=== PATIENT | male | born 1965 | race Caucasian/White ===

== ENCOUNTER 2016-03-17 18:32 | Emergency (ER) | payer SELFPAY ==
[2016-03-17 18:37] VITALS: TEMP 97.7
--- NOTE | 2016-03-17 19:23 | EDPHY ---
General - History Smoking Status: Current every day smoker Narrative: CHIEF COMPLAINT: Dental pain HISTORY OF PRESENT ILLNESS: Seven days history of multiple areas of dental pain. Has extensively poor dental care and dental hygiene, and has not seen a dentist in greater than 6 months. No fever or chills. No headache. No confusion. He does have moderate to severe pain primarily teeth 8 through 16. he feels he may have an abscess. He does not have any bleeding. No trauma. No trismus. No other associated complaints or modifying factors. He is a smoker with high blood pressure. No established dental care or primary care at this time as he recently moved from [place]. REVIEW OF SYSTEMS: Ten systems reviewed and are negative unless otherwise noted in the HPI EXAMINATION General Appearance: Alert, no distress, overweight Head: normocephalic, atraumatic Eyes: Pupils equal and round, no conjunctival pallor or injection ENT, Mouth: Mucous membranes moist, very poor dentition with multiple dental caries and partially eroded teeth. No obvious abscess. There is pulpitis. No dental abscess. Uvula is midline. No other abnormality of the oropharynx Neck: Normal inspection, supple, non-tender Respiratory: Lungs are clear to auscultation Cardiovascular: Regular rate and rhythm Neurological: A&O, nonfocal Skin: Warm and dry, no rash Extremities: Nontender, no pedal edema Psychiatric: Mood and affect normal MDM: multiple dental caries with dental pain extensively on the left upper maxillary ridge. There are no obvious abscesses but there is pulpitis in very poor condition with multiple teeth that are partially eroded or fracture. He is in no acute distress with stable vital signs. Discharge home with antibiotic and pain medication for short course. Recommend follow up with dentist or dental aid for definitive care. Patient is comfortable with this plan and discharged home in stable condition. SUPERVISION:This patient was independently evaluated without the aide of supervising physician. (Tanner Burgess) Medical Decision Making: This patient was evaluated and treated by the physician human resource assistant. I have reviewed the documentation and agree with the plan of care. I am the secondary supervising physician. (Rosa Choudhary) - Objective Vital Signs: Initial Vital Signs Temperature (C) 36.5 C 03/17/16 18:35 Heart Rate 77 03/17/16 18:35 Respiratory Rate 20 03/17/16 18:35 Blood Pressure 182/115 H 03/17/16 18:35 O2 Sat (%) 96 03/17/16 18:35 O2 Delivery Mode Room Air Allergies/Adverse Reactions: codeine Allergy (Verified 03/17/16 18:34) Home Medications: Medication Instructions Recorded Penicillin V Potassium [Pen Vk 500 mg PO Q6H 10 Days 03/17/16 500mg (*)] oxyCODONE HCL/ACETAMINOPHEN 1 each PO Q4-6PRN PRN #20 tablet 03/17/16 [Percocet 5-325 mg Tablet] Medications Given: Discontinued Medications Oxycodone/Acetaminophen (Percocet 5/325) 1 tab PO EDNOW ONE Stop: 03/17/16 19:26 Last Admin: 03/17/16 19:38 Dose: 1 tab Departure - Departure Disposition: Home, Routine, Self-Care Clinical Impression: Pain due to dental caries, Poor dentition Condition: Good Instructions: Dental Caries (ED), Toothache (ED) Additional Instructions: follow-up with dentist or dental aid as discussed. Take antibiotics to completion. Pain medication only as needed. Referrals: [facility] [Outside] - As per Instructions Naye Sidhu MD [Medical Doctor] - As per Instructions Prescriptions: Penicillin V Potassium [Pen Vk 500mg (*)] 500 mg PO Q6H 10 Days oxyCODONE HCL/ACETAMINOPHEN [Percocet 5-325 mg Tablet] 1 each PO Q4-6PRN PRN # 20 tablet PRN Reason: Pain, Moderate
[2016-03-17] MEDS ORDERED: OXYCODONE/APAP 5/325 TAB PO ONE (19:25)
[2016-03-17 19:53] VITALS: BP 125/103; PULSE 89; RESP 16; O2SAT 95
== END 2016-03-17 19:40 | disposition home or self-care (01) ==
DX: K08.89 Other specified disorders of teeth and supporting structures (principal); K02.9 Dental caries, unspecified; K00.7 Teething syndrome; F17.200 Nicotine dependence, unspecified, uncomplicated

== ENCOUNTER 2016-04-19 19:07 | Emergency (ER) | payer SELFPAY ==
[2016-04-19 19:26] VITALS: TEMP 99
[2016-04-19] MEDS ORDERED: OSELTAMIVIR PHOSPHATE 75 MG CAP PO ONE (19:59)
[2016-04-19] MEDS ORDERED: IBUPROFEN 200 MG TAB PO ONE (20:00)
[2016-04-19] MEDS ORDERED: HYDROCODONE/APAP 5/325 TAB PO ONE (20:00)
[2016-04-19] MEDS ORDERED: HYDROCOD/APAP 5/325 PREPACK#6 BTL TAKEHOME ONE (20:00)
--- NOTE | 2016-04-19 20:06 | EDPHY ---
H & P Time Seen by Provider: 04/19/16 19:24 HPI/ROS: HPI Cough, muscle aches, joint aches, fever, sore throat. 51-year-old male on foot. He complains of cough, muscle aches, joint aches, fever/chills, sore throat, intermittent gradual onset headache times 1 and half days. He is currently living on [address] He does have a son who lives in [facility] who he states he can stay with tonight. His son brought him to the emergency department. ROS: Constitutional: As above. Eyes: No discharge. No changes in vision. ENT: As above. No nasal congestion or rhinorrhea. Respiratory: As above. No shortness of breath. Cardiac: No chest pain, no palpitations. Gastrointestinal: No abdominal pain, no vomiting, no diarrhea. Genitourinary: No hematuria. No dysuria or increased frequency with urination. Musculoskeletal: As above Skin: No rashes. Neurological: As above. No focal weakness or altered sensation. Past medical history: He denies any significant past medical history. Social history:He is from [place]. He is currently homeless. Physical Exam: General Appearance: Alert, no distress. This patient is responding to questions appropriately and in full sentences. This patient appears well- hydrated and well-nourished. Eyes: Pupils equal and round no pallor or injection. No lid edema, erythema or injection. ENT, Mouth: Mucous membranes are moist. Pharyngeal tissues are diffusely erythematous with mild edema. No asymmetry suggestive of abscess. No exudates. Respiratory: There are no retractions, lungs are clear to auscultation with good air movement bilaterally. No tachypnea. Intermittent nonproductive cough. Cardiovascular: Regular rate and rhythm. Borderline tachycardia No murmur. Gastrointestinal: Abdomen is soft and nontender, no masses, bowel sounds normal. No focal tenderness at McBurney's point. No Tovar sign. Neurological: Motor sensory function is grossly intact. Cranial nerves are normal. Gait is normal. Skin: Warm and dry, no rashes. Musculoskeletal: Neck is supple and nontender. No pain on flexion of the neck. No significant cervical lymphadenopathy. He is a large man. Extremities are symmetrical. All joints range without pain or impingement. Psychiatric: No agitation. No depression. Database: EKG: Imaging: Procedures: Emergency department course: Rapid influenza was ordered from triage. This was negative. However, the patient presents as classic influenza with symptoms onset a day and half ago. He will be given 2 Eldorado tablets in the emergency department with 800 mg of ibuprofen and 75 mg of Tamiflu. We will fill the prescription for Tamiflu through our assistance program of possible. He will be able to stay with his son who lives in [facility] until he gets better. I discussed follow-up with [facility] for re-evaluation. He can go to the walk-in clinic. Return to emergency department precautions reviewed. All of his questions were answered. He was discharged in good condition. Differential Diagnosis: The differential diagnosis on this patient includes but is not limited to influenza, viral syndrome, upper respiratory infection. Serious bacterial infection unlikely. This represents a partial list of diagnoses considered. These considerations are based on history, physical exam, past history, reassessment and diagnostic testing. Smoking Status: Current every day smoker Constitutional: Initial Vital Signs Temperature (C) 37.2 C 04/19/16 19:21 Heart Rate 102 H 04/19/16 19:21 Respiratory Rate 20 04/19/16 19:21 Blood Pressure 114/84 H 04/19/16 19:21 O2 Sat (%) 93 04/19/16 19:21 O2 Delivery Mode Room Air Allergies/Adverse Reactions: codeine Allergy (Verified 03/17/16 18:34) Home Medications: Medication Instructions Recorded Penicillin V Potassium [Pen Vk 500 mg PO Q6H 10 Days 03/17/16 500mg (*)] oxyCODONE HCL/ACETAMINOPHEN 1 each PO Q4-6PRN PRN #20 tablet 03/17/16 [Percocet 5-325 mg Tablet] Oseltamivir Phosphate [Tamiflu 75 75 mg PO BID #10 cap 04/19/16 mg (RX)] Medical Decision Making - Data Points Laboratory Results: 04/19/16 19:31 Influenza Typ A,B (DFA) NEGATIVE FOR FLU (NEGATIVE) Departure - Departure Disposition: Home, Routine, Self-Care Clinical Impression: Influenza Condition: Good Instructions: Influenza (ED) Additional Instructions: Read and follow provided instructions. Follow-up with [facility] at their walk-in clinic on [facility] tomorrow for re-evaluation. There hours are 9:00 a.m. until 4:00 p.m.. Ibuprofen dosin mg every 6 hours with meals for the next 3 days only. Eldorado/Percocet dosin-2 every 4-[address] not drive on this medication. Take medication as prescribed. Return to the emergency department for worsening symptoms, worsening cough, difficulty breathing, worsening sore throat or other serious concerns. Referrals: [facility],. [Clinic] - As per Instructions Prescriptions: Oseltamivir Phosphate [Tamiflu 75 mg (RX)] 75 mg PO BID #10 cap
[2016-04-19 20:22] VITALS: BP 136/81; PULSE 91; RESP 16; O2SAT 92
== END 2016-04-19 20:26 | disposition home or self-care (01) ==
DX: J11.1 Influenza due to unidentified influenza virus with other respiratory manifestations (principal); F17.200 Nicotine dependence, unspecified, uncomplicated

== ENCOUNTER 2016-06-15 22:22 | Emergency (ER) | payer MEDICAID ==
[2016-06-15 22:27] VITALS: RESP 18
[2016-06-15] MEDS ORDERED: OXYCODONE/APAP 5/325 TAB PO ONE (23:05)
--- NOTE | 2016-06-15 23:24 | EDPHY ---
General Narrative: CHIEF COMPLAINT: Fall, left shoulder pain, left elbow pain HISTORY OF PRESENT ILLNESS: Patient was walking this evening when he tripped and fell. He said he fell backwards, extending his left arm out to break the fall. When he landed he felt a sudden onset of pain in the left elbow and shoulder. The left elbow pain is severe, 10/10. The left shoulder pain is 8/ 10. He has no pain in the left wrist or hand. The pain is worse with any kind of attempted movement. He is unable to move the shoulder elbow because the pain. It radiates into the forearm. No numbness or tingling. No changes in temperature of the arm. No head or neck injury. No loss of conscious. No chest or back pain. No injury to the right arm or either leg. He is right-hand dominant. Does have a history of left rotator cuff injury status post surgical repair 3 years ago. Patient just moved here from [place] and is asking for primary care physician as well. No other associated complaints or modifying factors. PRIOR ORTHO INJURIES: Left rotator cuff, repair in 2013 ESTABLISHED ORTHOPEDIST: None current REVIEW OF SYSTEMS: Ten systems reviewed and are negative unless otherwise noted in the HPI EXAMINATION General Appearance: Alert, no distress Cardiovascular: Pulses normal throughout. Symmetric radial pulses are 2+. Brisk cap refill Neurological: A&O, sensory symmetric. No wrist drop. Skin: Warm and dry, no rash. No lacerations abrasions or contusions. Extremities: Significant tenderness to palpation of the left elbow and shoulder. There is no tenderness of the left hand or left anatomic snuffbox. Range of motion is difficult to test in the elbow or shoulder secondary to pain. He does have the ability to supinate and pronate the elbow but painfully so. He is neurovascular intact distal to the left elbow or shoulder pain. Right upper extremity is unremarkable. Psychiatric: Mood and affect normal DIFFERENTIAL DIAGNOSES: Including but not limited to fracture, dislocation, fracture dislocation, sprain , strain, rotator cuff injury MDM: 11:05 p.m. Mechanical fall with severe pain of the left shoulder and elbow. There is no injury to the wrist or hand. He is neurovascular intact distal to the pain. Range of motion not tested at this point pending the x-rays. 11:38 p.m. X-rays reveal an acute, nondisplaced radial head fracture in the elbow. The left shoulder x-ray is unremarkable. I re-examined the patient and informed him of this. He remains neurovascular intact. Minimally tested range of motion of the shoulder due to pain. Able to elevate and abduct the shoulder. I will place him in a long-arm posterior splint and refer him to Orthopedics for definitive care. Additionally I will provide a primary care physician number for him as he is new to the area. He is comfortable this plan and will be discharged home stable condition. He is to return to ER for any worsening pain , numbness of the extremity, paresthesia of the extremity, redness or increasing swelling. ED Precautions: Worsening pain. Erythema, edema, cyanosis, pallor, paresthesia or anesthesia. SUPERVISION: This patient was independently evaluated without direct examination by the attending physician. Case was discussed with attending physician. - Diagnostics Imaging Results: Imaging Impressions Shoulder X-Ray 06/15/16 22:32 Impression: Nothing acute. - History Smoking Status: Current every day smoker - Objective Vital Signs: Initial Vital Signs Temperature (C) 98.8 F 06/15/16 22:24 Heart Rate 93 06/15/16 22:24 Respiratory Rate 18 06/15/16 22:24 Blood Pressure 168/99 H 06/15/16 22:24 O2 Sat (%) 97 06/15/16 22:24 O2 Delivery Mode Room Air Allergies/Adverse Reactions: codeine Allergy (Verified 06/15/16 22:27) Home Medications: Medication Instructions Recorded oxyCODONE HCL/ACETAMINOPHEN 1 each PO Q4-6PRN PRN #20 tablet 06/15/16 [Percocet 5-325 mg Tablet] Departure - Departure Disposition: Home, Routine, Self-Care Clinical Impression: Left radial head fracture Qualifiers: Encounter type: initial encounter Fracture type: closed Fracture alignment: nondisplaced Qualified Code(s): S52.125A - Nondisplaced fracture of head of left radius, initial encounter for closed fracture Fall Qualifiers: Encounter type: initial encounter Qualified Code(s): W19.XXXA - Unspecified fall, initial encounter Condition: Good Instructions: Oxycodone/Acetaminophen (By mouth), Elbow Fracture (ED) Additional Instructions: Sling and splint as instructed. [id number] ibuprofen or Aleve as instructed. Percocet as needed as prescribed. Follow up with Orthopedics for definitive care. Return to the ER for worsening pain, increasing swelling, numbness, tingling or weakness of the arm. Referrals: NONE *PRIMARY CARE P,. [Primary Care Provider] - As per Instructions Deirdre Mora MD [Medical Doctor] - As per Instructions Darin Salinas MD [Medical Doctor] - As per Instructions Prescriptions: oxyCODONE HCL/ACETAMINOPHEN [Percocet 5-325 mg Tablet] 1 each PO Q4-6PRN PRN # 20 tablet PRN Reason: Pain, Breakthrough
[2016-06-15] MEDS ORDERED: HYDROCOD/APAP 5/325 PREPACK#6 BTL TAKEHOME ONE ×2 (23:56→23:57)
[2016-06-16 00:02] VITALS: BP 158/77; PULSE 84; TEMP 98.6; O2SAT 96
== END 2016-06-16 00:06 | disposition home or self-care (01) ==
DX: S52.125A Nondisplaced fracture of head of left radius, initial encounter for closed fracture (principal); F17.200 Nicotine dependence, unspecified, uncomplicated; W01.0XXA Fall on same level from slipping, tripping and stumbling without subsequent striking against object, initial encounter

== ENCOUNTER 2016-07-03 19:09 | Emergency (ER) | payer MEDICAID ==
[2016-07-03 19:15] VITALS: BP 144/109; PULSE 76; RESP 17; TEMP 97.7; O2SAT 96
--- NOTE | 2016-07-03 19:52 | EDPHY ---
H & P Stated Complaint: sore throat Time Seen by Provider: 07/03/16 19:52 HPI/ROS: CHIEF COMPLAINT: Sore throat HISTORY OF PRESENT ILLNESS: The patient presents to the ED with a 1 one-week history of sore throat. The patient reports myalgias and slight fever. The patient denies prior history of strep. The patient denies significant past medical history. The patient has had some mild rhinorrhea and an occasional cough. The patient does complain of some tender lymphadenopathy in his neck. The patient has tried [id number] medications without improvement of his symptoms. The patient denies additional acute complaints. REVIEW OF SYSTEMS: A comprehensive 10 point review of systems is otherwise negative aside from elements mentioned in the history of present illness. Source: Patient - Personal History Current Tetanus/Diphtheria Vaccine: Yes - Medical/Surgical History Hx Asthma: No Hx Chronic Respiratory Disease: No Hx Diabetes: No Hx Cardiac Disease: No Hx Renal Disease: No Hx Cirrhosis: No Hx Alcoholism: No Hx HIV/AIDS: No Hx Splenectomy or Spleen Trauma: No Other PMH: PSHX:L shoulder surg. PMHx: denies - Social History Smoking Status: Current every day smoker - Physical Exam Exam: General Appearance: Alert, no distress Eyes: Pupils equal and round no pallor or injection ENT, Mouth: Pharyngeal erythema, no peritonsillar mass, no stridor or trismus Respiratory: There are no retractions, lungs are clear to auscultation Cardiovascular: Regular rate and rhythm Gastrointestinal: Abdomen is soft and nontender, no masses, bowel sounds normal Neurological: A&O, normal motor function, normal sensory exam, normal cranial nerves Skin: Warm and dry, no rashes Musculoskeletal: Neck is supple nontender Extremities: symmetrical, full range of motion Constitutional: Initial Vital Signs Temperature (C) 36.5 C 07/03/16 19:13 Heart Rate 76 07/03/16 19:13 Respiratory Rate 17 07/03/16 19:13 Blood Pressure 144/109 H 07/03/16 19:13 O2 Sat (%) 96 07/03/16 19:13 O2 Delivery Mode Room Air Allergies/Adverse Reactions: codeine Allergy (Verified 06/15/16 22:27) Home Medications: Medication Instructions Recorded Dexamethasone [Decadron 4 MG (*)] 4 mg PO BID #3 tab 07/03/16 Penicillin V Potassium [Pen Vk] 500 mg PO TID #21 tab 07/03/16 Medical Decision Making ED Course/Re-evaluation: The patient will be treated with penicillin VK for bacterial pharyngitis. He is also given a prescription for Decadron for 1 day. The patient is encouraged to use ibuprofen as needed for pain. The patient is referred to our on-call primary care provider. The patient is well-appearing in the emergency department. He has no clinical evidence of meningitis, pneumonia or a significant intraoral infection. Differential Diagnosis: Differential diagnosis considered includes pharyngitis, peritonsillar abscess, upper respiratory infection Departure - Departure Disposition: Home, Routine, Self-Care Clinical Impression: Acute pharyngitis Condition: Good Instructions: Pharyngitis (ED) Additional Instructions: 1. Take Ibuprofen or Motrin 600 mg by mouth three times a day. 2. Take Decadron as prescribed. 3. Take antibiotics as prescribed. 4. Please follow up with [facility] to establish primary care. Referrals: [facility],. [Clinic] - As per Instructions Prescriptions: Dexamethasone [Decadron 4 MG (*)] 4 mg PO BID #3 tab Penicillin V Potassium [Pen Vk] 500 mg PO TID #21 tab
== END 2016-07-03 20:07 | disposition home or self-care (01) ==
DX: J02.9 Acute pharyngitis, unspecified (principal); F17.200 Nicotine dependence, unspecified, uncomplicated

== ENCOUNTER 2016-07-05 12:30 | Emergency (ER) | payer MEDICAID ==
[2016-07-05 12:44] VITALS: TEMP 98.1
--- NOTE | 2016-07-05 13:03 | EDPHY ---
H & P Stated Complaint: GENERALIZED ABD PAIN N/V X 4 DAYS Time Seen by Provider: 07/05/16 12:59 HPI/ROS: CHIEF COMPLAINT: Abdominal pain HISTORY OF PRESENT ILLNESS: The patient presents to the ED with progressively worsening abdominal pain for the past 48 hours. The patient was seen in the ED 2 days ago and diagnosed with pharyngitis. He was treated with penicillin and Decadron. The patient denies prior history of abdominal pain. The pain is generalized in nature. The patient does report anorexia. The patient does have a prior history of abdominal hernias which have not been repaired. The patient denies prior history of abdominal surgery. The patient denies significant alcohol use. The patient rates his pain is moderate in nature. He does report subjective fever and chills and associated nausea. REVIEW OF SYSTEMS: A comprehensive 10 point review of systems is otherwise negative aside from elements mentioned in the history of present illness. Source: Patient Exam Limitations: No limitations - Personal History Current Tetanus/Diphtheria Vaccine: Yes - Medical/Surgical History Hx Asthma: No Hx Chronic Respiratory Disease: No Hx Diabetes: No Hx Cardiac Disease: No Hx Renal Disease: No Hx Cirrhosis: No Hx Alcoholism: No Hx HIV/AIDS: No Hx Splenectomy or Spleen Trauma: No Other PMH: PSHX:L shoulder surg/UMBILICAL HERNIA. PMHx: denies - Social History Smoking Status: Current every day smoker - Physical Exam Exam: General Appearance: Alert, mild discomfort Eyes: Pupils equal and round no pallor or injection ENT, Mouth: Improving pharyngeal erythema Respiratory: There are no retractions, lungs are clear to auscultation Cardiovascular: Regular rate and rhythm Gastrointestinal: Tenderness to palpation noted in the right upper quadrant, right mid quadrant and right lower quadrant, normal bowel sounds Neurological: A&O, normal motor function, normal sensory exam, normal cranial nerves Skin: Warm and dry, no rashes Musculoskeletal: Neck is supple nontender Extremities: symmetrical, full range of motion Constitutional: Initial Vital Signs Temperature (C) 36.7 C 07/05/16 12:42 Heart Rate 75 07/05/16 12:42 Respiratory Rate 20 07/05/16 12:42 Blood Pressure 125/86 H 07/05/16 12:42 O2 Sat (%) 95 07/05/16 12:42 O2 Delivery Mode Room Air Allergies/Adverse Reactions: codeine Allergy (Verified 05/03/17 12:42) Home Medications: Medication Instructions Recorded Dexamethasone [Decadron 4 MG (*)] 4 mg PO BID #3 tab 07/03/16 Penicillin V Potassium [Pen Vk] 500 mg PO TID #21 tab 07/03/16 Codeine Phosphate/Guaifenesin 10 ml PO SU19 PRN #120 ml 07/05/16 [Codeine-Guaifen 10-100 mg/5 ml] Medical Decision Making - Diagnostics Imaging Results: Imaging Impressions Abdomen CT 07/05/16 13:47 Impression: 1. No source for right sided pain identified. Normal appendix. 2. Bilateral lung cysts. Differential diagnosis includes Langerhans' cell histiocytosis, lymphocytic interstitial pneumonitis, tuberous sclerosis, tracheobronchial papillomatosis, Sjogren's disease and neurofibromatosis. 3. Right periumbilical fat hernia. Results discussed with Dr. Ray Dougherty at 2:34 PM General information for patients regarding this examination can be found at [email or web address] If you have questions or comments about this report, please contact me at [phone] (hospital) or [phone] (cell). ED Course/Re-evaluation: The patient presents to the ED with generalized abdominal pain. The patient was noted to be mildly tender on exam. His tenderness was in the right upper quadrant right lower quadrant. Given his tenderness, a CT scan of the abdomen pelvis was ordered which demonstrates no evidence of intra-abdominal pathology. The patient's laboratory studies do demonstrate a leukocytosis. This is likely secondary to the Decadron the patient started several days ago. The patient was given a GI cocktail. He had an IV established. He received 2 L of normal saline and 2 mg of IV Dilaudid. The patient was re-evaluated at 4:00 p.m. the patient has ongoing mild tenderness. He has had a cough with his recent pharyngitis. It is certainly possible he is having some abdominal wall discomfort from that. At this point time I do not see an acute surgical process. Do feel it is reasonable to have him observe his symptoms for the next 12 hours and return for recheck. Patient is comfortable with that plan and disposition. Differential Diagnosis: Differential diagnosis considered includes perforation, obstruction, appendicitis, cholecystitis, pancreatitis, diverticulitis - Data Points Laboratory Results: Laboratory Results 07/05/16 13:15 07/05/16 13:15 07/05/16 07/05/16 07/05/16 14:55 13:15 13:15 WBC 16.31 10^3/uL H 10^3/uL (3.80-9.50) RBC 6.12 10^6/uL 10^6/uL (4.40-6.38) Hgb 17.6 g/dL H g/dL (13.7-17.5) Hct 52.7 % H % (40.0-51.0) MCV 86.1 fL fL (81.5-99.8) MCH 28.8 pg pg (27.9-34.1) MCHC 33.4 g/dL g/dL (32.4-36.7) RDW 13.2 % % (11.5-15.2) Plt Count 249 10^3/uL 10^3/uL (150-400) MPV 9.9 fL fL (8.7-11.7) Neut % (Auto) 74.7 % H % (39.3-74.2) Lymph % (Auto) 18.9 % % (15.0-45.0) Harper % (Auto) 5.5 % % (4.5-13.0) Eos % (Auto) 0.1 % L % (0.6-7.6) Baso % (Auto) 0.2 % L % (0.3-1.7) Nucleat RBC Rel Count 0.0 % % (0.0-0.2) Absolute Neuts (auto) 12.16 10^3/uL H 10^3/uL (1.70-6.50) Absolute Lymphs (auto) 3.09 10^3/uL H 10^3/uL (1.00-3.00) Absolute Monos (auto) 0.90 10^3/uL H 10^3/uL (0.30-0.80) Absolute Eos (auto) 0.02 10^3/uL L 10^3/uL (0.03-0.40) Absolute Basos (auto) 0.04 10^3/uL 10^3/uL (0.02-0.10) Absolute Nucleated RBC 0.00 10^3/uL 10^3/uL (0-0.01) Immature Gran % 0.6 % % (0.0-1.1) Immature Gran # 0.10 10^3/uL 10^3/uL (0.00-0.10) Sodium 138 mEq/L mEq/L (134-144) Potassium 4.0 mEq/L mEq/L (3.5-5.2) Chloride 105 mEq/L mEq/L (97-110) Carbon Dioxide 23 mEq/l mEq/l (22-31) Anion Gap 10 mEq/L mEq/L (8-16) BUN 14 mg/dL mg/dL (7-23) Creatinine 1.1 mg/dL mg/dL (0.7-1.3) Estimated GFR > 60 Glucose 143 mg/dL H mg/dL (70-100) Calcium 9.3 mg/dL mg/dL (8.5-10.4) Total Bilirubin 0.4 mg/dL mg/dL (0.1-1.4) Conjugated Bilirubin 0.3 mg/dL mg/dL (0.0-0.5) Unconjugated Bilirubin 0.1 mg/dL mg/dL (0.0-1.1) AST 17 IU/L IU/L (17-59) ALT 26 IU/L IU/L (21-72) Alkaline Phosphatase 76 IU/L IU/L (38-126) Total Protein 7.5 g/dL g/dL (6.3-8.2) Albumin 4.1 g/dL g/dL (3.5-5.0) Lipase 198.0 IU/L IU/L (23-300) Urine Color PALE YELLOW Urine Appearance CLEAR Urine pH 5.0 (5.0-7.5) Ur Specific [place] > 1.035 H (1.002-1.030) Urine Protein NEGATIVE (NEGATIVE) Urine Ketones NEGATIVE (NEGATIVE) Urine Blood NEGATIVE (NEGATIVE) Urine Nitrate NEGATIVE (NEGATIVE) Urine Bilirubin NEGATIVE (NEGATIVE) Urine Urobilinogen NEGATIVE EU EU (0.2-1.0) Ur Leukocyte Esterase NEGATIVE (NEGATIVE) Urine Glucose NEGATIVE (NEGATIVE) Medications Given: Discontinued Medications Al Hydroxide/Mg Hydroxide (Maalox Susp) 30 ml PO ONCE ONE Stop: 07/05/16 15:05 Last Admin: 07/05/16 15:34 Dose: 30 ml Hydromorphone HCl (Dilaudid) 1 mg IVP EDNOW ONE Stop: 07/05/16 13:13 Last Admin: 07/05/16 13:21 Dose: 1 mg Hydromorphone HCl (Dilaudid) 1 mg IVP EDNOW ONE Stop: 07/05/16 13:59 Last Admin: 07/05/16 14:02 Dose: 1 mg Hyoscyamine Sulfate (Levsin, Hyomax-Sl) 0.25 mg PO ONCE ONE Stop: 07/05/16 15:05 Last Admin: 07/05/16 15:34 Dose: 0.25 mg Sodium Chloride (Ns) 1,000 mls @ 0 mls/hr IV ONCE ONE PRN Reason: Wide Open Stop: 07/05/16 13:14 Last Admin: 07/05/16 13:21 Dose: 1,000 mls Lidocaine (Lidocaine 2% Viscous) 15 ml PO ONCE ONE Stop: 07/05/16 15:05 Last Admin: 07/05/16 15:34 Dose: 15 ml Ondansetron HCl (Zofran) 4 mg IVP EDNOW ONE Stop: 07/05/16 13:13 Last Admin: 07/05/16 13:21 Dose: 4 mg Departure - Departure Disposition: Home, Routine, Self-Care Clinical Impression: Abdominal pain Condition: Good Instructions: Acute Abdominal Pain (ED) Additional Instructions: 1. Sometimes we are unable to diagnose an obvious cause of abdominal pain in the Emergency Department. Based upon our evaluation today, we see no obvious explanation for your pain aside from a possible strain secondary to coughing. Because more serious conditions can be difficult to diagnose early in the course of their presentation, we ask that you return to the Emergency Department in 8-12 hours for a recheck if you are still having pain. This is necessary to exclude the development of a more serious condition such as appendicitis or other intra-abdominal emergency. In the event your pain markedly increases before that time or you develop intractable vomiting or fever return to the Emergency Department immediately. 2. Additionally do have some scarring in cysts seen in your lung tissue. We do recommend following up with the health professor you have been referred to for further evaluation of this finding. You have been referred to Dr. Alcazar our on- call health professor for a follow-up appointment. 3. Please schedule a follow-up appointment with [facility] to establish primary care. 4. Please use cough syrup as prescribed Referrals: Gopal Alcazar MD [Medical Doctor] - As per Instructions [facility],. [Clinic] - As per Instructions
[2016-07-05] MEDS ORDERED: ONDANSETRON 4 MG/2 ML VIAL IVP ONE (13:12)
[2016-07-05] MEDS ORDERED: HYDROmorphONE/DILAUDID 1 MG/ML SYR IVP ONE ×2 (13:12→13:58)
[2016-07-05] MEDS ORDERED: NS 1,000 ML IV ONE (13:13)
[2016-07-05 13:25] LABS: % IMMATURE GRANULYOCYTES 0.6 % (0.0-1.1); ADD DIFF? NO; ADD MORPH? NO; ADD SCAN? NO; ATYPICAL LYMPHOCYTE FLAG 10 (0-99); FRAGMENT RBC FLAG 0 (0-99); HEMATOCRIT 52.7 % (40.0-51.0); HEMOGLOBIN 17.6 g/dL (13.7-17.5); LEFT SHIFT FLG 0 (0-99); LIPEMIA HEMOLYSIS FLAG 80 (0-99); MEAN CELL HEMOGLOBIN 28.8 pg (27.9-34.1); MEAN CELL HEMOGLOBIN CONCENTR. 33.4 g/dL (32.4-36.7); MEAN CELL VOLUME 86.1 fL (81.5-99.8); MEAN PLATELET VOLUME 9.9 fL (8.7-11.7); PLATELET CLUMPS FLAG 0 (0-99); PLATELET COUNT 249 10^3/uL (150-400); RED BLOOD CELL COUNT 6.12 10^6/uL (4.40-6.38); RED CELL DISTRIBUTION WIDTH 13.2 % (11.5-15.2)
[2016-07-05 13:37] LABS: ANION GAP 10 mEq/L (8-16); CARBON DIOXIDE 23 mEq/l (22-31); CHLORIDE 105 mEq/L (97-110); CREATININE 1.1 mg/dL (0.7-1.3); GLUCOSE 143 mg/dL (70-100); SODIUM 138 mEq/L (134-144)
[2016-07-05 13:38] LABS: ALANINE AMINOTRANSFERASE 26 IU/L (21-72); ALBUMIN 4.1 g/dL (3.5-5.0); ALKALINE PHOSPHATASE 76 IU/L (38-126); ASPARTATE AMINOTRANSFERASE 17 IU/L (17-59); BILIRUBIN,TOTAL 0.4 mg/dL (0.1-1.4); BILIRUBIN-CONJUGATED 0.3 mg/dL (0.0-0.5); BILIRUBIN-UNCONJUGATED 0.1 mg/dL (0.0-1.1); CALCIUM 9.3 mg/dL (8.5-10.4); GLOMERULAR FILTRATION RATE > 60; TOTAL PROTEIN 7.5 g/dL (6.3-8.2)
[2016-07-05] MEDS ORDERED: IOPAMIDOL (ISOVUE-300) 100 ML BTL IV ONE (13:54)
[2016-07-05] MEDS ORDERED: HYDROmorphONE/DILAUDID 1 MG/ML SYR ONE (13:59)
[2016-07-05] MEDS ORDERED: LIDOCAINE 2% VISCOUS 15 ML UDCUP PO ONE (15:04)
[2016-07-05] MEDS ORDERED: HYOSCYAMINE SULFATE 0.125 MG TAB PO ONE (15:04)
[2016-07-05] MEDS ORDERED: MAG HYDROX/AL HYDROX/SIMETH 30 ML UDCUP PO ONE (15:04)
[2016-07-05 15:15] LABS: COLOR PALE YELLOW; LEUKOCYTE ESTERASE,URINE NEGATIVE (NEGATIVE); NITRITE,URINE NEGATIVE (NEGATIVE)
[2016-07-05] MEDS ORDERED: OXYCODONE/APAP 5/325 TAB PO ONE (16:36)
[2016-07-05 16:50] VITALS: BP 136/72; PULSE 84; RESP 16; O2SAT 97
== END 2016-07-05 16:48 | disposition home or self-care (01) ==
DX: R10.11 Right upper quadrant pain (principal); F17.200 Nicotine dependence, unspecified, uncomplicated; R10.31 Right lower quadrant pain
CPT/HCPCS: 96374; J1170; J2405; Q9967